=== PATIENT | male | born 1995 | race Caucasian/White ===

== ENCOUNTER 2019-09-11 14:41 | Outpatient (CLI) | payer OTHER, SELFPAY ==
--- NOTE | ~2019-09-11 | XR_ITS ---
EXAMINATION: XR scoliosis survey EXAM DATE: 09/11/2019 15:19 INDICATION: Thoracic pain, TECHNIQUE: Frontal and lateral projections entire spine composite images, frontal and lateral projec tions cervical and thoracic spine, frontal and lateral projections lumbar sacral spine. There is no prior study for comparison. FINDINGS: There is 12 rib bearing thoracic vertebral bodies. There is 2-3 degrees of dextroscoliosis as measured between T4-6, 2 mm of levoscoliosis measured from T7 to T9, 5 degrees levoscoliosis abigail ured L1-L4. No segmentation anomalies. The vertebral bodies are aligned in the AP dimension. Vertebra l body and disc heights are well-maintained. Paraspinal soft tissue is unremarkable. IMPRESSION: Mild thoracolumbar scoliosis. Reviewed, dictated and finalized at location B.
--- NOTE | ~2019-09-11 | XR_ITS ---
XR thoracic spine 3V 09/11/2019 15:19 Indication: Back pain Procedure: 3 views of the thoracic spine Comparison: No prior studies for comparison. Findings: Vertebral body and disc heights are preserved. No paraspinal soft tissue abnormality. Pedic les are intact. Surrounding osseous structures within normal limits. Mild dextrocurvature of the thor acic spine. Impression: 1: Mild dextroscoliosis of the thoracic spine. Reviewed, dictated and finalized at location A. Impression: 1: Mild dextroscoliosis of the thoracic spine.
== END 2019-09-11 14:42 | disposition home or self-care (01) ==
PROVIDERS: PCP Family Medicine; Visit Provider Physician Assistant Medical
DX: M43.9 Deforming dorsopathy, unspecified (principal); G89.29 Other chronic pain; M54.6 Pain in thoracic spine; M41.85 Other forms of scoliosis, thoracolumbar region; M41.84 Other forms of scoliosis, thoracic region
CPT/HCPCS: 72072; 72082

== ENCOUNTER 2022-03-17 15:09 | Outpatient (CLI) | payer OTHER, SELFPAY ==
[2022-03-17 16:32] LABS: HIV 1/2 Ab P24 Ag Result Negative (Negative)
[2022-03-18 16:29] LABS: Rapid Plasma Reagin Reactive (NonReactive)
[2022-03-21 09:07] LABS: HSV 1 IgM Screen Negative (Negative); HSV 2 IgM Screen Negative (Negative)
[2022-03-23 20:30] LABS: Treponema pallidum Ab FTA ABS Reactive (Nonreactive)
== END 2022-03-17 15:10 | disposition home or self-care (01) ==
LOC: ANHLAB 15:10
PROVIDERS: PCP Nurse Practitioner Family; Visit Provider Nurse Practitioner Family
DX: Z20.2 Contact with and (suspected) exposure to infections with a predominantly sexual mode of transmission (principal)
CPT/HCPCS: 36415; 86592; 86695; 86696; 86703; 86780; 87491; 87591; G0432